=== PATIENT | female | born 1970 | race Two or more races ===

== ENCOUNTER 2022-11-28 12:41 | Emergency (ER) | payer OTHER ==
[~2022-11-28] VITALS: Ht 170.2 cm; Wt 52.6 kg
[2022-11-28] MEDS ORDERED: PREMPRO 0.3 MG1 EACH PO (12:45)
[2022-11-28] MEDS ORDERED: ZOLOFT25 MG PO (12:46)
== END 2022-11-28 15:53 | disposition home or self-care (01) ==
LOC: ER 12:41
DX: S91.311A Laceration without foreign body, right foot, initial encounter (principal); W18.39XA Other fall on same level, initial encounter; Y93.89 Activity, other specified; Y92.89 Other specified places as the place of occurrence of the external cause; Y99.8 Other external cause status

== ENCOUNTER 2023-10-05 08:19 | Outpatient (CLI) | payer OTHER ==
[~2023-10-05 08:19] MED LIST: CEFUROXIME500 MG PO; MUCINEX600 MG PO; PREMPRO 0.3 MG1 EACH PO; PREMPRO 0.45-11 EACH; ZOLOFT25 MG PO; ZYRTEC10 MG PO
== END 2023-10-05 08:31 | disposition home or self-care (01) ==
LOC: MAMO-SONO 08:19
PROVIDERS: ATTEND Obstetrics & Gynecology
DX: N63.0 Unspecified lump in unspecified breast (principal); N64.4 Mastodynia

== ENCOUNTER 2023-10-17 13:06 | Outpatient (CLI) | payer OTHER | END 2023-10-17 13:09 | disposition home or self-care (01) | LOC: NUCLEAR 13:06 | PROVIDERS: ATTEND Obstetrics & Gynecology | DX: M81.0 Age-related osteoporosis without current pathological fracture (principal) ==

== ENCOUNTER 2024-08-22 08:19 | Outpatient (CLI) | payer OTHER | END 2024-08-22 08:22 | disposition home or self-care (01) | LOC: RAD 08:19 | DX: R06.02 Shortness of breath (principal); J84.116 Cryptogenic organizing pneumonia; J20.9 Acute bronchitis, unspecified ==

== ENCOUNTER 2024-10-12 15:48 | Emergency (ER) | payer OTHER ==
[~2024-10-12] VITALS: Ht 157.5 cm; Wt 54.4 kg
[2024-10-12] MEDS ORDERED: PROGESTERONE200 MG PO (15:56)
[2024-10-12] MEDS ORDERED: ESTRADIOL1 MG PO (15:56)
[2024-10-12] MEDS ORDERED: ALENDRONATE SOD70 MG PO (15:57)
[2024-10-12] MEDS ORDERED: CEFTRIAXONE SODIUM 1,000 MG VIAL IM ONE (17:15)
[2024-10-12] MEDS ORDERED: DIPHTH,PERTUSS(ACELL),TET VAC 0.5 ML VIAL IM ONE (17:15)
[2024-10-12] MEDS ORDERED: DUI500 PO (17:36)
== END 2024-10-12 17:52 | disposition home or self-care (01) ==
LOC: ER 15:51
DX: S80.811A Abrasion, right lower leg, initial encounter (principal); X58.XXXA Exposure to other specified factors, initial encounter; Y93.89 Activity, other specified; Y92.488 Other paved roadways as the place of occurrence of the external cause; Y99.8 Other external cause status

== ENCOUNTER 2025-05-11 15:15 | Inpatient (IN) | payer OTHER ==
[~2025-05-11] VITALS: Ht 157.5 cm; Wt 52.6 kg
[~2025-05-11 15:15] MED LIST changes: +ALENDRONATE SOD70 MG PO; +DUI500 PO; +ESTRADIOL1 MG PO; +PROGESTERONE200 MG PO
--- NOTE | 2025-05-11 15:54 | NUR ---
PTE ALERTA Y ORIENTADA X3, SE MICHAEL S/V. PTE REFIERE QUE PRESENTA DIFICULTAD RESPIRATORIA DESDE HACE 4 [place]. AL MOMENTO DE TRIAGE SATURACION EN 95%. SE UBICA PTE EN SECCION K1
--- NOTE | 2025-05-11 18:14 | NUR ---
SE ORIENTA PACIENTE SOBRE TX MEDICO Y SHAN REFIERE ENTENDER Y ACEPTAR EL MISMO. SE PROCEDE A ARAVIND MUESTRAS DE LAB. BAJO MEDIDAS ASEPTICAS. SE NOTIFICAN PLACA
[2025-05-11 18:16] LABS: BASO % 0.3 % (0.1-1.2); EOS # 0.00 (0.04-0.54); EOS % 0.0 % (0.7-7.0); LYMPH # 1.21 (1.18-3.74); LYMPH % 8.1 % (19.3-53.1); MEAN PLATELET VOLUME 8.80 fl (9.4-12.4); MONO # 0.51 (0.24-0.82); MONO % 3.4 % (4.7-12.5); NEUT # 13.17 (1.56-6.13); NEUT % 87.9 % (34.0-71.1); RED CELL DISTRIBUTION WIDTH 11.4 % (11.6-14.4)
[2025-05-11 18:31] LABS: COVID-19 AG NEGATIVE (NEGATIVE)
[2025-05-11 18:46] LABS: ALT/SGPT 22.0 U/L (12-78); AST/SGOT 10.0 U/L (15-37); BILIRUBIN TOTAL 0.22 mg/dL (0.3-1.2); BUN CREA RATIO 18.0 (7.0-25.0); CREATININE SERUM 0.68 mg/dL (0.55-1.02); GFR 90.86; GLOBULINA 4.7 G/DL (2.4-3.5); GLUCOSE FASTING 118.0 mg/dL (65-100); OSMOLALITY SERUM 284.0 MOSM/KG (275-295)
[2025-05-11] MEDS ORDERED: AZITHROMYCIN 500 MG VIAL IV ONE ×2 (22:15→23:18)
[2025-05-11] MEDS ORDERED: CEFTRIAXONE SODIUM 2,000 MG VIAL IV ONE (22:15)
[2025-05-11] MEDS ORDERED: CEFTRIAXONE SODIUM 2,000 MG VIAL ONE (23:17)
[2025-05-12] MEDS ORDERED: IPRATROPIUM/ALBUTEROL SULFATE 3 ML AMPUL.NEB IH SCH (00:11)
[2025-05-12] MEDS ORDERED: BUDESONIDE 0.5 MG/2 ML AMPUL.NEB IH SCH (00:13)
[2025-05-12] MEDS ORDERED: IPRATROPIUM/ALBUTEROL SULFATE 3 ML AMPUL.NEB IH ONE ×2 (00:14→13:11)
--- NOTE | 2025-05-12 06:59 | NUR ---
FEMINA ALERTA Y ORIENTADA X3 EN JOELLEN POSICION MAS BAJA Y BARANDAS ELEVADAS POR SEGURIDAD. CANALIZADA CON H/L, PATENTE ABDOULAYE DE EDEMA Y ERITEMA. PACIENTE CONSULTADA CON DR YAIR WHITE.
[2025-05-12] MEDS ORDERED: ACETAMINOPHEN 500 MG GEL..CAP PO ONE ×2 (08:29→08:30)
[2025-05-12] MEDS ORDERED: CEFTRIAXONE SODIUM 2,000 MG in 0.9 % SODIUM CHLORIDE 100 ML IV SCH (11:29)
[2025-05-12] MEDS ORDERED: METHYLPREDNISOLONE SOD SUCC 40 MG VIAL IV SCH (11:30)
[2025-05-12] MEDS ORDERED: AZITHROMYCIN 500 MG VIAL IV SCH (11:30)
[2025-05-12] MEDS ORDERED: ENOXAPARIN SODIUM 40 MG/0.4 ML SYRINGE SUBCUTANEO SCH (11:31)
[2025-05-12] MEDS ORDERED: FAMOTIDINE/PF 20 MG in 0.9 % SODIUM CHLORIDE 8 ML IV PUSH SCH (11:31)
[2025-05-12] MEDS ORDERED: ACETAMINOPHEN 325 MG TABLET PO PRN (11:45)
[2025-05-12] MEDS ORDERED: 0.9 % SODIUM CHLORIDE 1,000 ML IV SCH (11:45)
[2025-05-12] MEDS ORDERED: CEFTRIAXONE SODIUM 2,000 MG VIAL ONE (12:21)
[2025-05-12] MEDS ORDERED: ENOXAPARIN SODIUM 40 MG/0.4 ML SYRINGE SUBCUTANEO ONE (12:21)
[2025-05-12] MEDS ORDERED: METHYLPREDNISOLONE SOD SUCC 40 MG VIAL ONE (12:21)
[2025-05-12] MEDS ORDERED: AZITHROMYCIN 500 MG VIAL IV ONE (12:22)
[2025-05-12 12:59] VITALS: BP 100/70
[2025-05-12 18:12] VITALS: BP 99/64
[2025-05-13 02:14] VITALS: BP 100/65; O2SAT 97
[2025-05-13] MEDS ORDERED: LACTOBACILLUS ACIDOPHILUS 1 CAP CAP PO SCH (09:00)
[2025-05-13 09:28] VITALS: BP 110/56
[2025-05-13] MEDS ORDERED: AZITHROMYCIN 500 MG VIAL IV ONE (09:57)
[2025-05-13] MEDS ORDERED: TUBERCULIN,PURIF.PROT.DERIV. 5 TU/0.1 ML VIAL ID ONE (10:00)
[2025-05-13] MEDS ORDERED: LEVALBUTEROL HCL 0.63 MG/3 ML SOLUTION IH SCH (12:00)
[2025-05-13 17:48] VITALS: BP 100/62
[2025-05-14 03:38] VITALS: BP 97/61; O2SAT 97
[2025-05-14] MEDS ORDERED: AZITHROMYCIN 500 MG VIAL IV ONE (08:04)
[2025-05-14 09:47] VITALS: BP 104/68; O2SAT 99
[2025-05-14] MEDS ORDERED: METHYLPREDNISOLONE SOD SUCC 40 MG VIAL IV SCH (17:00)
[2025-05-14] MEDS ORDERED: IPRATROPIUM BROMIDE 0.5 MG/2.5 ML AMPUL.NEB IH SCH (18:00)
[2025-05-14] MEDS ORDERED: TUBERCULIN,PURIF.PROT.DERIV. 5 TU/0.1 ML VIAL ID NR (20:00)
[2025-05-14 21:01] VITALS: BP 107/70; O2SAT 96
[2025-05-15 02:49] VITALS: BP 115/78; O2SAT 98
[2025-05-15 06:26] LABS: BASO % 0.1 % (0.1-1.2); EOS # 0.00 (0.04-0.54); EOS % 0.0 % (0.7-7.0); LYMPH # 0.82 (1.18-3.74); LYMPH % 7.8 % (19.3-53.1); MEAN PLATELET VOLUME 9.30 fl (9.4-12.4); MONO # 0.26 (0.24-0.82); MONO % 2.5 % (4.7-12.5); NEUT # 9.38 (1.56-6.13); NEUT % 88.8 % (34.0-71.1); RED CELL DISTRIBUTION WIDTH 12.1 % (11.6-14.4)
[2025-05-15 07:02] LABS: ALT/SGPT 28.0 U/L (12-78); AST/SGOT 17.0 U/L (15-37); BILIRUBIN TOTAL 0.16 mg/dL (0.3-1.2); BUN CREA RATIO 20.0 (7.0-25.0); CREATININE SERUM 0.51 mg/dL (0.55-1.02); GFR 126.63; GLOBULINA 3.6 G/DL (2.4-3.5); GLUCOSE FASTING 121.0 mg/dL (65-100); OSMOLALITY SERUM 287.0 MOSM/KG (275-295)
[2025-05-15 07:16] LABS: ERYTHROCYTE SEDIMENTATION RATE 53 mm/hr (0-30)
[2025-05-15] MEDS ORDERED: AZITHROMYCIN 500 MG VIAL IV ONE (08:02)
[2025-05-15] MEDS ORDERED: IRON FUM,PS/FOLIC/BCOMP,C NO.9 1 CAP CAPSULE PO SCH (09:00)
[2025-05-15 17:38] VITALS: BP 106/65
[2025-05-16 01:39] VITALS: BP 100/65; O2SAT 99
[2025-05-16] MEDS ORDERED: AZITHROMYCIN 500 MG VIAL IV ONE (08:03)
[2025-05-16 09:03] VITALS: BP 121/78; O2SAT 98
[2025-05-16] MEDS ORDERED: FAMOTIDINE/PF 20 MG/2 ML VIAL ONE (16:17)
[2025-05-16] MEDS ORDERED: METHYLPREDNISOLONE SOD SUCC 40 MG VIAL IV SCH (21:00)
[2025-05-16 21:39] VITALS: BP 105/69
[2025-05-17 02:10] VITALS: BP 119/76; O2SAT 97
[2025-05-17] MEDS ORDERED: AZITHROMYCIN 500 MG VIAL IV ONE (09:11)
[2025-05-17 10:12] VITALS: BP 114/75; O2SAT 96; O2SAT 98
[2025-05-17] MEDS ORDERED: PREDNISONE 5 MG TABLET PO NR (14:00)
[2025-05-18 03:39] VITALS: BP 95/58; O2SAT 97
[2025-05-18 06:40] LABS: BASO % 0.2 % (0.1-1.2); EOS # 0.04 (0.04-0.54); EOS % 0.3 % (0.7-7.0); LYMPH # 2.78 (1.18-3.74); LYMPH % 22.9 % (19.3-53.1); MEAN PLATELET VOLUME 8.90 fl (9.4-12.4); MONO # 0.71 (0.24-0.82); MONO % 5.8 % (4.7-12.5); NEUT # 8.30 (1.56-6.13); NEUT % 68.3 % (34.0-71.1); RED CELL DISTRIBUTION WIDTH 12.3 % (11.6-14.4)
[2025-05-18 07:06] LABS: BUN CREA RATIO 21.0 (7.0-25.0); CREATININE SERUM 0.61 mg/dL (0.55-1.02); GFR 102.99; GLUCOSE FASTING 85.0 mg/dL (65-100); OSMOLALITY SERUM 286.0 MOSM/KG (275-295)
[2025-05-18] MEDS ORDERED: AZITHROMYCIN 500 MG VIAL IV ONE (07:48)
[2025-05-18 08:24] VITALS: BP 98/66
[2025-05-18] MEDS ORDERED: PREDNISONE 5 MG TABLET PO SCH (09:00)
[2025-05-18] MEDS ORDERED: IPRATROPIU0.2 MG/1 M IH (16:45)
[2025-05-18] MEDS ORDERED: PREDNISONE 5MG PO (16:45)
[2025-05-18] MEDS ORDERED: INTEGRA PLUS C1 EACH PO (16:45)
[2025-05-18] MEDS ORDERED: LEVALBUTER0.63 MG/3 IH (16:45)
[2025-05-18] MEDS ORDERED: BUDESONIDE0.5 MG/2 M IH (16:45)
[2025-05-18 16:46] VITALS: BP 98/62; O2SAT 97
== END 2025-05-18 20:20 | disposition home or self-care (01) | DRG 194 ==
LOC: ER 15:15 → MEDI 05-12 12:18 → SEC-K 05-12 12:18 → MEDI 05-12 13:40
PROVIDERS: Internal Medicine; Preventive Medicine Public Health & General Preventive Medicine; ADMIT Internal Medicine; ATTEND Internal Medicine
PROC: BB24ZZZ Computerized Tomography (CT Scan) of Bilateral Lungs (ICD-10-PCS; principal; 2025-05-11)
PROC: 3E0F7GC Introduction of Other Therapeutic Substance into Respiratory Tract, Via Natural or Artificial Opening (ICD-10-PCS; 2025-05-13)
DX: J18.1 Lobar pneumonia, unspecified organism (principal); J44.1 Chronic obstructive pulmonary disease with (acute) exacerbation; J47.9 Bronchiectasis, uncomplicated; R07.89 Other chest pain; Z87.891 Personal history of nicotine dependence; Z79.52 Long term (current) use of systemic steroids